=== PATIENT | male | born 2000 | race African-American/Black ===

== ENCOUNTER 2021-01-29 18:46 | Emergency (ER) | payer OTHER ==
[~2021-01-29] VITALS: Ht 185.4 cm; Wt 104.3 kg
[2021-01-29 18:55] VITALS: BP_SYST 134
[2021-01-29] MEDS ORDERED: LIDOCAINE 1% 10 MG/ML, 20 ML MDV INJ ONE (20:15)
[2021-01-29 21:20] VITALS: BP_SYST 134
== END 2021-01-29 21:20 | disposition home or self-care (01) ==
LOC: SED 18:46
DX: S01.511A Laceration without foreign body of lip, initial encounter (principal); S01.512A Laceration without foreign body of oral cavity, initial encounter; Z88.0 Allergy status to penicillin; W51.XXXA Accidental striking against or bumped into by another person, initial encounter; Y93.61 Activity, american tackle football; Y92.89 Other specified places as the place of occurrence of the external cause; Y99.8 Other external cause status
CPT/HCPCS: 99284